=== PATIENT | female | born 1945 | race Caucasian/White ===

== ENCOUNTER 2021-01-20 13:57 | Outpatient (CLI) | payer MEDICARE, OTHER, SELFPAY ==
--- NOTE | 2021-01-20 14:11 | XR_ITS ---
WS: [id number] Lumbar spine, 3 views, 01/20/2021 Clinical Data: RIGHT HIP PAIN Comparison: None. Findings: There is loss of 25% of the anterior and central vertebral body height of L1 which is a minimal compr ession fracture of indeterminate age. There is degenerative disc narrowing at L4-L5 and L5-S1. There is a subluxation of L4 and L5 of 2.6 cm. Anterior osteoarthritic spurring at L5-S1 is present. Diffus e osteoporosis is noted. The transverse processes and SI joints are normal. XR/XR lumbar spine 2-3V* [id number] Impression: 1. Slight compression fracture of L1 of indeterminate age. 2. Subluxation of 0.6 cm a 4 on L5. 3. Degenerative disc narrowing with osteoarthritis at L5-S1.
--- NOTE | 2021-01-20 14:11 | XR_ITS ---
WS: [id number] Right hip, AP and frog leg views, 01/20/2021 Clinical Data: RIGHT HIP PAIN Comparison: None. Findings: No fractures or dislocations are seen. The right hip joint is intact. No right hip joint space erosio n, sclerosis or narrowing is seen. The soft tissues are not remarkable. The adjacent pelvis is normal . XR/XR hip RT 2-3V wo/w pel* [id number] Impression: Negative right hip. Tonnis classification: grade 0: normal radiographs
== END 2021-01-20 13:58 | disposition home or self-care (01) ==
LOC: RADWPI 14:02
PROVIDERS: Family Provider Family Medicine; Visit Provider Family Medicine
DX: M54.30 Sciatica, unspecified side (principal); M25.551 Pain in right hip; S32.019A Unspecified fracture of first lumbar vertebra, initial encounter for closed fracture; S33.140A Subluxation of L4/L5 lumbar vertebra, initial encounter; X58.XXXA Exposure to other specified factors, initial encounter; M47.817 Spondylosis without myelopathy or radiculopathy, lumbosacral region
CPT/HCPCS: 72100; 73502

== ENCOUNTER → 2021-01-25 14:07 | Outpatient (BNVA) | payer MEDICARE, SELFPAY | PROVIDERS: Family Provider Family Medicine; Visit Provider Nurse Practitioner Family | DX: Z20.822 Contact with and (suspected) exposure to COVID-19 (principal); J06.9 Acute upper respiratory infection, unspecified | CPT/HCPCS: 87635 ==

== ENCOUNTER → 2022-04-12 13:32 | Outpatient (BNVA) | payer MEDICARE, OTHER, SELFPAY | PROVIDERS: Family Provider Family Medicine; Visit Provider Otolaryngology | DX: J34.89 Other specified disorders of nose and nasal sinuses (principal); M26.621 Arthralgia of right temporomandibular joint | CPT/HCPCS: 99203; 99204 ==

== ENCOUNTER → 2022-06-10 13:11 | Outpatient (BNVA) | payer MEDICARE, OTHER, SELFPAY | PROVIDERS: Family Provider Family Medicine; Visit Provider Emergency Medicine | DX: R68.89 Other general symptoms and signs (principal); Z20.822 Contact with and (suspected) exposure to COVID-19 | CPT/HCPCS: 87400; 87426 ==

== ENCOUNTER 2022-07-18 12:13 | Emergency (ER) | payer MEDICARE, OTHER, SELFPAY ==
[2022-07-18 12:50] VITALS: BP 172/81; PULSE 67; RESP 14; TEMP 36.5; O2SAT 100
--- NOTE | 2022-07-18 13:24 | XRR_ITS ---
PROCEDURE INFORMATION: Exam: XR Left Shoulder Exam date and time: 07/18/2022 1:43 PM Age: 76 years old Clinical indication: Injury or trauma; Fall; Blunt trauma (contusions or hematomas); Injury date: 07/15/22; Patient HX: Fell monday-slipped on some grease. Pain on left side of head and neck. Pain in left shoulder and left index finger. ; Additional info: Fall and landed on left shoulder TECHNIQUE: Imaging protocol: Radiologic exam of the Left shoulder. Views: 2 or more views. COMPARISON: CT cervical spin wo con* [id number] 07/18/2022 1:36 PM FINDINGS: Bones/joints: There is an old deformity of the lower scapula. At least moderate left shoulder DJD. No acute fracture or dislocation noted. Vasculature: Diffuse vascular calcification. Soft tissues: Normal. XR/XR shoulder LT min 2V* [id number] IMPRESSION: Chronic findings above, no acute fracture noted.
--- NOTE | 2022-07-18 13:24 | CTR_ITS ---
PROCEDURE INFORMATION: Exam: CT Head Without Contrast Exam date and time: 07/18/2022 1:31 PM Age: 76 years old Clinical indication: Injury or trauma; Fall; Blunt trauma (contusions or hematomas); Consciousness not specified; Injury date: 07/15/22; Injury details: -fell monday-slipped on some grease. Pain on left side of head and neck. ; Additional info: Fall and hit head, denies loc, but confused afterward TECHNIQUE: Imaging protocol: Computed tomography of the head without contrast. Radiation optimization: All CT scans at this facility use at least one of these dose optimization techniques: automated exposure control; mA and/or kV adjustment per patient size (includes targeted exams where dose is matched to clinical indication); or iterative reconstruction. COMPARISON: No relevant prior studies available. RADIATION DOSE METRICS: Total DLP (mGy-cm): 164.6 FINDINGS: Brain: No focal hemorrhage or midline shift is identified. The ventricles and parenchyma show mild atrophy and chronic bicerebral white matter ischemic change. Cerebral ventricles: No ventriculomegaly or evidence of hydrocephalus. Paranasal sinuses: No evidence of acute sinusitis. Trace left maxillary sinus mucosal thickening. Mastoid air cells: Visualized mastoid air cells are well aerated. Bones/joints: No displaced skull fracture is noted. 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 Soft tissues: Unremarkable. Vasculature: Diffuse vascular calcifications are present. CT/CT head wo con* [id number] IMPRESSION: 1. No acute intracranial abnormality. 2. Mild age-related changes. 3. 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
--- NOTE | 2022-07-18 13:24 | XRR_ITS ---
PROCEDURE INFORMATION: Exam: XR Left Hand Exam date and time: 07/18/2022 1:43 PM Age: 76 years old Clinical indication: Injury or trauma; Fall; Blunt trauma (contusions or hematomas); Injury date: 07/15/22; Patient HX: Fell monday-slipped on some grease. Pain on left side of head and neck. Pain in left shoulder and left index finger. ; Additional info: Fall with third digit pain and swelling TECHNIQUE: Imaging protocol: Radiologic exam of the Left hand. Views: 3 or more views. COMPARISON: No relevant prior studies available. FINDINGS: Bones/joints: No acute fracture or dislocation is noted. The skeletal structures seem age-appropriate. There is at least mild left hand and wrist DJD. There is moderate base of thumb DJD. Soft tissues: Unremarkable. XR/XR hand LT min 3V* [id number] IMPRESSION: No acute findings.
--- NOTE | 2022-07-18 13:24 | CTR_ITS ---
PROCEDURE INFORMATION: Exam: CT Cervical Spine Without Contrast Exam date and time: 07/18/2022 1:36 PM Age: 76 years old Clinical indication: Injury or trauma; Fall; Blunt trauma; Injury date: 07/15/2022; Additional info: Fall injury with neck pain TECHNIQUE: Imaging protocol: Computed tomography of the cervical spine without contrast. Radiation optimization: All CT scans at this facility use at least one of these dose optimization techniques: automated exposure control; mA and/or kV adjustment per patient size (includes targeted exams where dose is matched to clinical indication); or iterative reconstruction. COMPARISON: CT head wo con* [id number] 07/18/2022 1:31 PM RADIATION DOSE METRICS: Total DLP (mGy-cm): 177.87 FINDINGS: Bones/joints: No acute fracture. Normal alignment. No significant disc protrusion. No severe spinal canal stenosis. Old mild C7 compression. This is an old or congenital appearance. Mild old T2 compression as well. Mild diffuse age-appropriate cervical degenerative change with facet arthropathy. Lungs: No suspicious finding noted. Vasculature: Advanced diffuse vascular calcification noted. Soft tissues: Unremarkable. CT/CT cervical spin wo con* [id number] IMPRESSION: No acute findings.
--- NOTE | 2022-07-18 13:25 | W.ED.FALL ---
HPI - Fall General: Chief Complaint: Fall Stated Complaint: fall, shoulders and head pain Time Seen by Provider: 07/18/22 13:02 History of Present Illness: Patient is a 76-year-old female comes to the ED after a fall injury. Patient was at [facility] 3 days ago and slipped on some chicken grease by [employer]. She fell down landing on left side and shoulder. She thinks she hit her head but denies any loss of consciousness. After fall she was little confused but those symptoms have resolved. She reports having neck pain that radiates down into her shoulders and arms bilaterally, sore spot on left occipital region of head, left shoulder pain. She rates her pain currently a 8 out of 10. Associated symptoms-after fall: Reports neck pain; Denies abdominal pain, chest pain, headache(s) or hematuria Review of Systems Narrative: Fall injury and hit head, denies LOC Const: Denies: fever(s), chills or fatigue Eyes: Denies: change in vision or eye discomfort ENMT: Denies: throat pain, odynophagia, nasal discharge or nasal congestion Card: Denies: chest pain, palpitations, edema, swelling of feet/ankles, dyspnea on exertion or orthopnea Resp: Denies: dyspnea, productive cough or non-productive cough GI: Denies: abdominal pain, nausea, vomiting, diarrhea, constipation or hematochezia : Denies: flank pain, dysuria or hematuria Musc: Reports: neck pain and extremity pain (Left shoulder); Denies: back pain or extremity swelling Skin/Breast: Denies: rash or new lesions Neuro: Denies: headache(s), numbness in extremities or weakness in extremities [facility] PFSH: Medical History (Updated 07/18/22 @ 15:20 by LUIS Rendon) Depression Hypertension Shortness of breath Surgical History History of cataract surgery History of nasal surgery Social History Smoking and tobacco status: never smoked Physical Exam Const: COMMON NORMALS: no acute distress, patient oriented x3 and alert GENERAL APPEARANCE: cooperative HENMT: COMMON NORMALS: normocephalic HEAD & SCALP: normocephalic MOUTH: Normal oral and palatal mucosa present THROAT: posterior oropharynx normal and uvula midline Neck/C-Spine: COMMON NORMALS: supple GENERAL: Yes normal visual inspection Resp: COMMON NORMALS: normal respiratory effort, No retractions, No use of accessory muscles and clear to auscultation bilaterally AUSCULTATION: clear to auscultation bilaterally Cardio: COMMON NORMALS: regular rate, regular rhythm, S1 normal heart sound present, S2 normal heart sound present, No gallops present (Cardio), No clicks present (Cardio), No murmurs present (Cardio) and Peripheral pulses 2+ throughout RATE: regular rate RHYTHM: regular rhythm HEART SOUNDS: S1 normal heart sound present and S2 normal heart sound present PERIPHERAL PULSES: Peripheral pulses 2+ throughout GI: COMMON NORMALS: Normal to inspection, nondistended, normoactive bowel sounds present, Soft to palpation, non-tender and no masses PALPATION: Yes Soft to palpation : COMMON NORMALS: Yes no CVA tenderness BLADDER/KIDNEY EXAM: Yes no CVA tenderness Back/Pelvis: COMMON NORMALS: no CVA tenderness Extremity: COMMON NORMALS: normal to inspection Neuro: COMMON NORMALS: patient oriented x3, CN's II-XII intact bilaterally, moves all extremities and no focal motor deficits SENSORIUM/ORIENTATION: Yes alert SPEECH: speech normal GAIT: Yes Normal gait present Skin: GENERAL SKIN EXAM: dry skin Course Vital Signs: Vital signs: Vital Signs Temperature 98.3 F 07/18/22 15:31 Pulse Rate 60 07/18/22 15:31 Respiratory Rate 14 07/18/22 15:31 Blood Pressure 147/95 07/18/22 15:31 Pulse Oximetry 97 07/18/22 15:31 Oxygen Delivery Me thod 07/18/22 15:31 MDM - Fall Medical Decision Making Patient is a 76-year-old female comes to the ED after a fall injury. Patient was at [facility] 3 days ago and slipped on some chicken grease by [employer]. She fell down landing on left side and shoulder. She thinks she hit her head but denies any loss of consciousness. After fall she was little confused but those symptoms have resolved. She reports having neck pain that radiates down into her shoulders and arms bilaterally, sore spot on left occipital region of head, left shoulder pain. She rates her pain currently a 8 out of 10. Vital stable. Exam is benign. CT is cervical spine, and head CT showed no acute findings. Left hand and left shoulder x-ray showed no acute fractures as well. Patient was stable for discharge home and diagnosed with fall with injury. Sent home with a prescription for muscle relaxer and ibuprofen 800 mg tablets. Told to follow-up with PCP in the next week for reevaluation. Return to ED precautions given. Patient understood and agreed with plan. Lab Data Radiology Impressions Cervical Spine CT 07/18/22 13:24 IMPRESSION: No acute findings. Hand X-Ray 07/18/22 13:24 IMPRESSION: No acute findings. Head CT 07/18/22 13:24 IMPRESSION: 1. No acute intracranial abnormality. 2. Mild age-related changes. 3. 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 Shoulder X-Ray 07/18/22 13:24 IMPRESSION: Chronic findings above, no acute fracture noted. Discharge Plan Discharge Patient Disposition: Home Clinical Impression: Fall with injury Qualifiers: Encounter type: initial encounter Qualified Code(s): W19.XXXA - Unspecified fall, initial encounter Condition: Stable Prescriptions: New methocarbamol 750 mg tablet 750 mg PO Q8H PRN (Reason: Muscle pain and spasms) Qty: 20 0RF ibuprofen 800 mg tablet 800 mg PO Q8H PRN (Reason: pain) Qty: 15 0RF No Action lisinopril 5 mg tablet 5 mg PO DAILY sertraline 100 mg tablet 100 mg PO DAILY sertraline 50 mg tablet 50 mg PO DAILY atorvastatin 40 mg tablet 40 mg PO DAILY levothyroxine 100 mcg capsule 100 mcg PO DAILY triamterene-hydrochlorothiazid 37.5-25 mg tablet 1 tab PO DAILY Discharge Orders: Discharge ED (Routine); Ordered 07/18/22 Ordered By: Manny Rocha Referrals: Eloisa Phan MD [Primary Care Provider] - Discharge Diet: Regular Discharge Activity: Increase activity as tolerated Activity Restrictions/Additional Instructions: Follow-up with medical provider as directed in the next 5 to 7 days for reevaluation. Take medications as prescribed. Return to the ER or your medical provider if condition worsens. Please read and understand discharge instructions. Thank you for choosing [facility] for your healthcare needs today. Please realize this is an emergency room and that we are providing you with a medical screening exam and this may not be complete and all inclusive of all the testing and or work up that you may need to determine your ailment or severity of your illness. It is very important that you follow up as instructed or that you return to the Emergency Department should you have concerns or if your condition changes or worsens in any way. Coding Level of Care Code ED Mold Release Worker for Emily Lopez Exam Comprehensive
[2022-07-18] MEDS: HYDROcodone-acetaminophen 5-325 mg Tablet 1 TAB PO (13:58)
[2022-07-18] MEDS: orphenadrine 30 mg/mL Inj 2 mL 60 MG IM (14:00)
[2022-07-18 15:31] VITALS: BP 147/95; PULSE 60; RESP 14; TEMP 36.8; O2SAT 97
== END 2022-07-18 15:30 | disposition home or self-care (01) ==
PROVIDERS: Emergency Provider Physician Assistant; PCP Family Medicine
DX: M25.512 Pain in left shoulder (principal); M54.2 Cervicalgia; I10 Essential (primary) hypertension; W01.0XXA Fall on same level from slipping, tripping and stumbling without subsequent striking against object, initial encounter; Y92.512 Supermarket, store or market as the place of occurrence of the external cause
CPT/HCPCS: 70450; 72125; 73030; 73130; 96372; 99285; J2360

== ENCOUNTER → 2022-11-28 10:03 | Outpatient (BNVA) | payer MEDICARE, OTHER, SELFPAY | PROVIDERS: PCP Family Medicine; Visit Provider Podiatrist Foot & Ankle Surgery | DX: M20.41 Other hammer toe(s) (acquired), right foot (principal); M20.42 Other hammer toe(s) (acquired), left foot; M20.21 Hallux rigidus, right foot; M20.22 Hallux rigidus, left foot; M21.611 Bunion of right foot; M21.612 Bunion of left foot; M77.41 Metatarsalgia, right foot; M77.42 Metatarsalgia, left foot | CPT/HCPCS: 73630; 99204 ==

== ENCOUNTER → 2023-11-14 10:54 | Outpatient (BNVA) | payer MEDICARE, OTHER, SELFPAY | PROVIDERS: PCP Family Medicine; Visit Provider Nurse Practitioner Family | DX: L57.0 Actinic keratosis (principal); L21.8 Other seborrheic dermatitis; L82.1 Other seborrheic keratosis; Q82.5 Congenital non-neoplastic nevus; I83.93 Asymptomatic varicose veins of bilateral lower extremities | CPT/HCPCS: 17000; 99204 ==

== ENCOUNTER → 2023-12-14 11:59 | Outpatient (BNVA) | payer MEDICARE, OTHER, SELFPAY | PROVIDERS: PCP Family Medicine; Referring Provider Family Medicine; Visit Provider Internal Medicine | DX: E03.9 Hypothyroidism, unspecified (principal); M85.80 Other specified disorders of bone density and structure, unspecified site; E83.52 Hypercalcemia; E16.2 Hypoglycemia, unspecified; M81.0 Age-related osteoporosis without current pathological fracture; Z79.890 Hormone replacement therapy | CPT/HCPCS: 99204 ==

== ENCOUNTER → 2023-12-18 09:13 | Outpatient (BNVA) | payer MEDICARE, OTHER, SELFPAY | PROVIDERS: PCP Family Medicine; Referring Provider Internal Medicine; Visit Provider Internal Medicine | DX: E03.9 Hypothyroidism, unspecified (principal); M85.80 Other specified disorders of bone density and structure, unspecified site; E83.52 Hypercalcemia; E16.2 Hypoglycemia, unspecified | CPT/HCPCS: 80053; 82306; 82310; 82533; 83516; 83970; 84439; 84443; 84480; 86376; 86800 ==

== ENCOUNTER → 2023-12-22 12:26 | Outpatient (BNVA) | payer MEDICARE, OTHER, SELFPAY | PROVIDERS: PCP Family Medicine; Visit Provider Internal Medicine | DX: E83.52 Hypercalcemia (principal); E03.9 Hypothyroidism, unspecified; M85.80 Other specified disorders of bone density and structure, unspecified site; E16.2 Hypoglycemia, unspecified; Z79.890 Hormone replacement therapy | CPT/HCPCS: 99214 ==

== ENCOUNTER → 2023-12-26 14:07 | Outpatient (CLI) | payer MEDICARE, OTHER, SELFPAY ==
--- NOTE | 2023-12-26 14:30 | XR_ITS ---
WS: [id number] DEXA (DUAL ENERGY X-RAY ABSORPTIOMETRY) Bone mineral density was performed using a [email or web address] machine. HISTORY: ostopenia COMPARISON: None available. Lumbar spine BMD (L1-L4): 1.026 g/cm2 T score: -1.3 Z score: 0.4 Total hip BMD: Left: 0.778 g/cm2. T score: -1.8 Z score: 0.0 Right: 0.749 g/cm2. T score: -2.1 Z score: -0.2 10 year probability of a major osteoporotic fracture is 22.6%. XR/XR DEXA axial skeleton* [id number] IMPRESSION: OSTEOPENIA based upon the WHO classification for females.
== END | disposition home or self-care (01) ==
LOC: RAD 14:07
PROVIDERS: PCP Family Medicine; Visit Provider Internal Medicine
DX: M81.0 Age-related osteoporosis without current pathological fracture (principal); M85.80 Other specified disorders of bone density and structure, unspecified site
CPT/HCPCS: 77080

== ENCOUNTER → 2024-05-15 13:10 | Outpatient (BNVA) | payer MEDICARE, OTHER, SELFPAY | PROVIDERS: PCP Family Medicine; Visit Provider Nurse Practitioner Family | DX: L57.0 Actinic keratosis (principal); L82.0 Inflamed seborrheic keratosis; L21.8 Other seborrheic dermatitis; L82.1 Other seborrheic keratosis; L81.4 Other melanin hyperpigmentation; L72.0 Epidermal cyst | CPT/HCPCS: 17000; 17110; 99214 ==

== ENCOUNTER → 2024-06-17 12:27 | Outpatient (BNVA) | payer MEDICARE, OTHER, SELFPAY | PROVIDERS: PCP Family Medicine; Visit Provider Internal Medicine | DX: E06.3 Autoimmune thyroiditis (principal); M85.80 Other specified disorders of bone density and structure, unspecified site; E83.52 Hypercalcemia; E16.2 Hypoglycemia, unspecified; Z79.890 Hormone replacement therapy | CPT/HCPCS: 36415; 80053; 82306; 82310; 83970; 84439; 84443; 99214 ==

== ENCOUNTER 2024-07-08 12:09 | Outpatient (CLI) | payer MEDICARE, OTHER, SELFPAY ==
[2024-07-08 12:51] LABS: Calcium 10.6 mg/dL (8.5-10.5)
[2024-07-08 13:44] LABS: Parathyroid Hormone 59.1 pg/mL (15-65)
== END 2024-07-08 12:10 | disposition home or self-care (01) ==
PROVIDERS: PCP Family Medicine; Visit Provider Internal Medicine
DX: E83.52 Hypercalcemia (principal); E03.9 Hypothyroidism, unspecified
CPT/HCPCS: 36415; 82310; 83970

== ENCOUNTER 2024-12-10 10:21 | Outpatient (CLI) | payer MEDICARE, OTHER, SELFPAY ==
[2024-12-10 11:11] LABS: Basophils # 0.1 10^3/uL (0.0-0.1); Basophils % 1.3 %; Eosinophils # 0.1 10^3/uL (0.0-0.8); Eosinophils % 1.9 %; Hematocrit 39.3 % (36-47); Lymphocytes # 1.7 10^3/uL (0.8-4.8); Lymphocytes % 35.6 %; Mean Corpuscular HGB Conc 32.1 g/dL (30-55); Mean Corpuscular Hemoglobin 29.3 pg (27-33); Mean Corpuscular Volume 91.4 fl (85-98); Mean Platelet Volume 9.6 fL (7.4-10.4); Monocytes # 0.4 10^3/uL (0.2-0.9); Monocytes % 7.8 %; Neutrophils # 2.47 10^3/uL (1.8-7.7); Neutrophils % 53.2 %; Nucleated Red Blood Cells % 0 %; Platelet Count 213 10^3/cmm (157-399); Red Cell Distribution Width 12.3 % (12.1-15.1); White Blood Count 4.64 10^3/uL (3.29-11.43)
[2024-12-10 11:34] LABS: Chol HDL Ratio 2.99 mg/dL (0.0-4.40); Cholesterol 239 mg/dL (0-200); HDL Cholesterol 80 mg/dL (60-100); LDL Cholesterol Calculated 140 mg/dL (50-129); LDL HDL Ratio 1.75 RATIO (0.00-3.22); Magnesium 1.9 mg/dL (1.7-2.3); Triglycerides 94 mg/dL (0-150)
[2024-12-10 11:46] LABS: Parathyroid Hormone 69.1 pg/mL (15-65)
[2024-12-10 11:55] LABS: 25 Hydroxy Vitamin D 58 ng/mL (30-100); Alanine Aminotransferase 13 U/L (0-33); Albumin Level 4.2 g/dL (3.5-5.2); Alkaline Phosphatase 74 U/L (35-105); Anion Gap 13.8 (5-19); Aspartate Amino Transferase 20 U/L (0-32); Blood Urea Nitrogen 11 mg/dL (8-23); Calcium 9.9 mg/dL (8.5-10.5); Carbon Dioxide 24 mmol/L (22-29); Chloride 98 mmol/L (98-107); Globulin 2.6 g/dL (1.3-4.6); Glucose 85 mg/dL (65-115); Osmolality Calculated 273 mOsm/kg (285-295); Potassium 3.8 mmol/L (3.5-5.1); Sodium 132 mmol/L (136-145); Thyroid Stimulating Hormone 1.44 uIU/mL (0.27-4.20); Total Bilirubin 0.6 mg/dL (0.15-1.2); Total Protein 6.8 g/dL (6.6-8.7)
[2024-12-10 12:24] LABS: Free T4 Free Thyroxine 1.53 ng/dL (0.82-1.77)
== END 2024-12-10 10:22 | disposition home or self-care (01) ==
PROVIDERS: Family Provider Family Medicine; PCP Family Medicine; Visit Provider Internal Medicine
DX: E03.9 Hypothyroidism, unspecified (principal); M85.80 Other specified disorders of bone density and structure, unspecified site; E83.52 Hypercalcemia; E16.2 Hypoglycemia, unspecified; E06.3 Autoimmune thyroiditis; Z79.899 Other long term (current) drug therapy; I10 Essential (primary) hypertension
CPT/HCPCS: 36415; 80053; 80061; 82306; 82310; 83735; 83970; 84439; 84443; 85025

== ENCOUNTER → 2024-12-16 11:43 | Outpatient (BNVA) | payer MEDICARE, OTHER, SELFPAY | PROVIDERS: Family Provider Family Medicine; PCP Family Medicine; Visit Provider Internal Medicine | DX: E06.3 Autoimmune thyroiditis (principal); E16.2 Hypoglycemia, unspecified; E83.52 Hypercalcemia; E03.9 Hypothyroidism, unspecified | CPT/HCPCS: 99214 ==